=== PATIENT | male | born 1960 | race Hispanic/Latino ===

== ENCOUNTER 2021-05-30 11:39 | Emergency (ER) | payer OTHER, SELFPAY ==
[2021-05-30] VITALS (8 sets, daily range): BP systolic 138–152; BP diastolic 78–93; PULSE 114–127; RESP 20–26; TEMP 38.1; O2SAT 97–98
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
[2021-05-30 12:12] LABS: Basophils Percent Auto 0.2 % (0.2-1.2); Hematocrit 48.3 % (42.0-52.0); Hemoglobin 17.7 g/dL (14.0-18.0); Immature Granulocyte Absolute 0.01 K/mm3 (0.00-0.031); Immature Granulocyte Percent A 0.2 % (0-0.5); Lymphocytes Absolute Auto 0.93 K/mm3 (0.9-3.2); Lymphocytes Percent Auto 16.2 % (18.3-44.2); Mean Corpuscular HGB Conc 36.6 g/dl (32-36); Mean Corpuscular Hemoglobin 30.6 pg (26-34); Mean Corpuscular Volume 83.6 fl (80-100); Monocytes Absolute Auto 0.3 K/mm3 (0.1-0.6); Neutrophils Absolute Auto 4.5 K/mm3 (1.3-6.7); Neutrophils Percent Auto 78.4 % (45.5-73.1); Platelet Count Result 204 k/mm3 (150-375); Red Blood Count 5.78 M/mm3 (4.6-6.20); Red Cell Distribution Width 12.7 % (11.5-14.5); White Blood Count 5.8 K/mm3 (4.5-10.0)
[2021-05-30] MEDS: ONDANSETRON INJ 4 MG/2 ML VIAL IV PUSH (12:25)
[2021-05-30] MEDS: BELLADONNA ALK/PHENOB ELIX 10 ML, MAG HYDROX/ALUMINUM HYD/SIMETH 30 ML, LIDOCAINE HCL 2... PO (12:25)
[2021-05-30] MEDS: LACTATED RINGERS 1,000 ML 999 ML IV CONT ×2 (12:25→14:54)
[2021-05-30 12:32] LABS: Alanine Aminotransferase 25 U/L (4-50); Albumin Level 4.2 g/dL (3.5-5.1); Alkaline Phosphatase 95 U/L (38-126); Anion Gap 13 mmol/L (8-16); Aspartate Amino Transferase 53 U/L (17-59); Blood Urea Nitrogen 13 mg/dL (9-20); Calcium 8.5 mg/dL (8.4-10.2); Carbon Dioxide 24 mmol/L (22-30); Chloride 93 mmol/L (98-107); Estimated CRCL calculation 63 ml/min; Estimated Glomerular Filt Rate > 60; Glucose 238 mg/dL (65-110); Lipase 55 U/L (23-300); Potassium 3.9 mmol/L (3.4-5.0); Sodium 130 mmol/L (137-145)
[2021-05-30 12:56] LABS: Add Urine Microscopic? YES; Appearance Urine Clear (Clear); Bilirubin Urine Negative (Negative); Blood Urine 1+ (Negative); Color Urine Yellow (Yellow); Glucose Urine UA 3+ mg/dL (Negative); Ketones Urine 2+ mg/dL (Negative); Leukocyte Esterase Ur Negative LEU/UL (Negative); Mucus Urine Moderate /lpf; Nitrate Urine Negative (Negative); Protein Urine 2+ mg/dL (Negative); RBC Urine 0-2 /hpf (0-2); Specific Grav Ur 1.021 (1.001-1.035); Squamous Epithelial Cell Urine Rare /hpf (Few); WBC Urine 0-3 /hpf
--- NOTE | 2021-05-30 15:01 | ED.ABDPAIN ---
HPI - Abdominal Pain General Chief Complaint: Abdominal Pain Stated Complaint: abd pain Time Seen by Provider: 05/30/21 12:01 Source: patient Mode of arrival: ambulatory Limitations: no limitations History of Present Illness HPI narrative: 60-year-old male Patient states that he has been sick for about a week with subjective fever muscle aches nausea poor appetite diarrhea Not much of a cough or shortness of breath No Covid vaccine Got a Covid test this morning but the results are pending Related Data Allergies Allergy/AdvReac Type Severity Reaction Status Date / Time No Known Allergies Allergy Mild Verified 05/30/21 12:00 Review of Systems Review of Systems: All systems reviewed & are unremarkable except as noted in HPI and below Constitutional: Constitutional: Reports no additional constitutional complaints, Reports chills, Reports fatigue, Reports fever(s), Denies headache(s) and Reports weakness Eyes: Eyes: Reports no additional eye complaints and Denies change in vision ENT: Denies headache(s) and Denies sore throat Cardiovascular: Cardiovascular: Denies chest pain and Denies dyspnea Respiratory: Respiratory: Reports cough and Denies dyspnea Gastrointestinal: Gastrointestinal: Reports abdominal pain, Reports diarrhea, Reports nausea and Reports vomiting Genitourinary: Genitourinary: Denies dysuria and Denies urinary frequency Musculoskeletal: Musculoskeletal: Reports myalgias, Denies deformity, Denies arthralgias, Denies joint swelling and Denies numbness Integumentary/Breasts: Skin/Breast: Denies rash and Denies wounds Neurologic: Denies headache(s), Denies focal weakness and Denies numbness Psychiatric: Psychiatric: Reports no additional psychiatric complaints Endocrine: Endocrine: Reports no additional endocrine complaints Hematologic/Lymphatic: Hematologic/Lymphatic: Reports no additional hematologic/lymphatic complaints Allergic/Immunologic: Allergic/Immunologic: Reports no additional allergic/immunologic complaints Exam Const: General: cooperative and no acute distress Orientation/consciousness: patient oriented x3 (alert) HENMT: Head: normal to inspection, normocephalic and atraumatic Ears: external ears normal General nose exam: no epistaxis Eyes: Conjunctivae: conjunctivae normal EOM: EOMs intact bilaterally Neck: Neck: normal visual inspection, supple and no JVD Resp: Effort & Inspection: normal respiratory effort and not labored Auscultation: no rales, no rhonchi, no wheezes and other (BS =) Cardio: Rate: regular rate and tachycardic Rhythm: regular rhythm Heart sounds: no murmurs GI: GI Palp: Yes Soft to palpation, No Tenderness to palpation present (GI), No Guarding due to palpation present (GI) and No Rebound tenderness present Urinary Catheter: Urinary Catheter: urine clear Skin: General skin exam: normal color and no rashes or lesions noted Neuro: General: patient oriented x3 (alert) and moves all extremities Speech: normal speech Extrem: General: normal to inspection and no pedal edema Psych: Affect: normal affect Course Course Emergency Course: Discussed with patient it does not seem that he would be eligible for any Covid therapeutics he has been sick for more than 5 days and does not have any hypoxemia Vital Signs Vital signs: Vital Signs Temperature 38.1 C H 05/30/21 11:42 Pulse Rate 126 H 05/30/21 11:42 Respiratory Rate 20 05/30/21 11:42 Blood Pressure 138/89 05/30/21 11:42 Pulse Oximetry 98 05/30/21 11:42 Temperature 38.1 C H 05/30/21 11:42 Pulse Rate 115 H 05/30/21 13:16 Respiratory Rate 25 H 05/30/21 13:16 Blood Pressure 144/78 H 05/30/21 13:15 Pulse Oximetry 97 05/30/21 11:58 MDM - Abdominal Pain Medical Records Attestation: I reviewed the patient's medical records. Lab Data Attestation: I reviewed the patient's lab results. Result diagrams: 05/30/21 12:05 05/30/21 12:05 Labs: La
[2021-05-30 15:55] LABS: SARS-CoV-2 RNA PCR Positive
== END 2021-05-30 16:04 | disposition home or self-care (01) ==
PROVIDERS: Emergency Medicine; Emergency Provider Emergency Medicine
DX: R73.9 Hyperglycemia, unspecified (principal); K76.0 Fatty (change of) liver, not elsewhere classified
CPT/HCPCS: 36415; 74176; 80053; 81001; 83690; 85025; 87804; 96361; 96374; 99284; A9270; C9803; J2405; J7120; U0003; U0005

== ENCOUNTER 2021-06-05 10:13 | Outpatient (CLI) | payer OTHER, SELFPAY ==
--- NOTE | ~2021-06-05 | XR_ITS ---
XR chest 2V DATE: 06/05/2021 10:33 INDICATION: Shortness of breath, cough, fatigue. Covid infection. TECHNIQUE: PA and lateral views COMPARISON: None FINDINGS: There are patchy consolidating infiltrates scattered in both lungs, consistent with bilater al pneumonia, likely Covid. No pleural effusion or pulmonary vascular congestion or pneumothorax. Nor mal heart size. Mild aortic unfolding. Mild degenerative spurring of the thoracic spine. IMPRESSION: Bilateral pneumonia, likely Covid Reviewed, dictated and finalized at location B. ING SPECIALIST
== END 2021-06-05 10:14 | disposition home or self-care (01) ==
PROVIDERS: PCP Emergency Medicine; Visit Provider Emergency Medicine
DX: U07.1 COVID-19 (principal); J12.82 Pneumonia due to coronavirus disease 2019; R50.9 Fever, unspecified; R53.83 Other fatigue; M47.814 Spondylosis without myelopathy or radiculopathy, thoracic region
CPT/HCPCS: 71046

== ENCOUNTER 2021-06-05 10:57 | Observation (INO) | payer OTHER, SELFPAY ==
[2021-06-05] VITALS (8 sets, daily range): BP systolic 114–145; BP diastolic 61–86; PULSE 96–126; RESP 16–20; TEMP 36.8–38.2; O2SAT 91–98; BMI 27.0
--- NOTE | ~2021-06-05 | XR_ITS ---
EXAMINATION: XR chest 1V portable DATE: 06/07/2021 15:07 INDICATION: Pneumonia TECHNIQUE: frontal view of the chest was obtained. COMPARISON: Chest radiograph and CT dated 06/05/2021 FINDINGS: Similar pattern of diffuse patchy bilateral airspace opacities relatively sparing the left apex consi stent with COVID pneumonia. No pleural effusion or pneumothorax. The cardiomediastinal silhouette is normal. IMPRESSION: 1. No significant change in diffuse bilateral patchy lung disease consistent with COVID pneumonia. Reviewed, dictated and finalized at location A. RVISOR FORCE ADJUSTMENT IMPRESSION: 1. No significant change in diffuse bilateral patchy lung disease consistent wi th COVID pneumonia.
--- NOTE | ~2021-06-05 | CT_ITS ---
EXAMINATION: CTA chest PE protocol EXAM DATE: 06/05/2021 17:34 INDICATION: Shortness of breath. TECHNIQUE: Spiral CTA of the chest (pulmonary arteries) was performed with 100 cc Omnipaque 350 intr avenous contrast injection. Images were acquired during the pulmonary arterial phase. Coronal maxi mum intensity projection 3D-reconstructions were created by the technologist on dedicated workstation . Axial, coronal and sagittal reformatted images were reviewed. The dose-length product (DLP) for t his examination was 460.28 mGy-cm. The exposure was tailored according to patient size (auto mA exp osure control), and iterative reconstruction (ASIR) was used as additional dose reduction technique. There is no prior study for comparison. FINDINGS: There are no pulmonary emboli in the 1st through 3rd order (central and interlobar) pulmon [place]nn arteries. Some loss of attenuation in the basilar segmental pulmonary from respiratory motion, t hese regions not confidently evaluated. No Intraluminal filling defects identified. No thoracic aor tic dissection. Diffuse bilateral groundglass airspace disease consistent with COVID pneumonia given appearance and community prevalence. There are no pleural or pericardial effusions. Tracheobronch ial tree is patent. There is no mediastinal, hilar or axillary lymphadenopathy. There is no pneum othorax. There is mild cardiomegaly. There is mild coronary arterial calcification, arterial scler osis. Upper abdomen is unremarkable. There is mild thoracic spondylosis without osteoblastic or os teolytic lesions identified. IMPRESSION: 1. Limited segmental evaluation, but no pulmonary emboli are suspected. 2. Diffuse groundglass airspace disease, COVID pneumonia. 3. Mild cardiomegaly. Reviewed, dictated and finalized at location G. ST NURSERY WORKER
--- NOTE | 2021-06-05 11:47 | ECG_ITS ---
Measurements Intervals [place] Rate: 122 P: 23 AK: 124 QRS: 11 QRSD: 88 T: 15 QT: 324 QTc: 463 Interpretive Statements SINUS TACHYCARDIA CONSIDER INFERIOR INFARCT, AGE INDETERMINATE BASELINE ARTIFACT- I, II, III, AVR, AVL, AVF ABNORMAL ECG Electronically Signed On 06-05-2021 13:01:40 ACCOUNTS PAYABLE TECHNICIAN by Anjel Cross D.O.
--- NOTE | 2021-06-05 12:07 | ED.GENADULT ---
HPI - General Adult General Chief complaint: Shortness of Breath/Dyspnea Stated complaint: sob Time Seen by Provider: 06/05/21 11:58 Source: patient and RN notes reviewed History of Present Illness HPI narrative: Patient is a 60 y/o male complaining moderate SOB for 1 week. He states that walking makes his SOB worse. He also has fever, cough, vomiting and diarrhea. He states that he tested positive for COVID last Friday. Related Data Home Medications Medication Instructions Recorded Confirmed albuterol sulfate 4 puff INHALATION QID 06/05/21 06/05/21 Allergies Allergy/AdvReac Type Severity Reaction Status Date / Time No Known Allergies Allergy Mild Verified 06/05/21 16:03 Review of Systems Constitutional: Constitutional: Denies chills, Reports fever(s), Denies headache(s) and Reports weakness Eyes: Eyes: Denies blurry vision ENT: Denies headache(s) and Denies neck pain Cardiovascular: Cardiovascular: Reports chest pain and Reports dyspnea Respiratory: Respiratory: Reports cough and Reports dyspnea Gastrointestinal: Gastrointestinal: Denies abdominal pain, Reports diarrhea, Reports nausea and Reports vomiting Genitourinary: Genitourinary: Denies hematuria and Denies dysuria Musculoskeletal: Musculoskeletal: Denies back pain and Denies neck pain Neurologic: Denies headache(s) and Reports weakness PMFSH Surgical History Surgical History (Updated 06/05/21 @ 20:33 by Corrina Blake NP) No pertinent past surgical history Family History Family History (Updated 06/05/21 @ 20:34 by Corrina Blake NP) Unknown Unknown family medical history Social History Social History (Updated 06/05/21 @ 20:34 by Corrina Blake NP) Social History: 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 He lives with his who is the durable power criminal defense attorney for healthcare. He has 2 children. Lifelong nonsmoker. Does not use any alcohol marijuana or illicit drugs. Code status full code Smoking status: Never smoker Alcohol intake: former Substance use: former Last use: 50 years ago Spiritual care concerns: Yes Exam Const: General: no acute distress and well developed Orientation/consciousness: oriented to person, oriented to place, oriented to time and patient oriented x3 HENMT: Head: normocephalic Ears: external ears normal General nose exam: Normal external nose present Eyes: General: appearance normal, both eyes and all related structures Conjunctivae: conjunctivae normal Neck: Neck: normal visual inspection and full ROM Chest: Chest palpation & inspection: normal inspection of the chest and no tenderness Resp: Effort & Inspection: normal respiratory effort Auscultation: clear to auscultation bilaterally Cardio: Rate: tachycardic Rhythm: regular rhythm GI: GI Palp: No abdominal tenderness and Yes Soft to palpation Skin: General skin exam: normal color and turgor normal Neuro: General: oriented to person, oriented to place, oriented to time and patient oriented x3 Cognition (Neuro): normal cognition Extrem: General: normal to inspection, full ROM and no pedal edema Psych: Appearance: grossly normal Mental Status: mental status grossly normal Affect: normal affect Course Consultations Consultation #1: Discussed with CROW Houser, who agrees to admit. Date: 06/05/21 Time: 13:44 Vital Signs Vital signs: Vital Signs Temperature 38.2 C H 06/05/21 11:32 Pulse Rate 126 H 06/05/21 11:32 Respiratory Rate 20 06/05/21 11:32 Blood Pressure 139/86 06/05/21 11:32 Pulse Oximetry 94 06/05/21 11:32 Temperature 37.3 C 06/06/21 04:00 Pulse Rate 100 06/06/21 04:00 Respiratory Rate 18 06/06/21 04:00 Blood Pressure 110/61 06/06/21 04:00 Pulse Oximetry 91 06/06/21 04:00 Medical Decision Making Vital Signs Vital Signs: Vital Signs Temperature 38.2 C H 06/05/21 11:32 Pulse Rate 126 H 06/05/21 11:32 Respiratory Rate 20 06/05/21 11:32 Blood Pressure
[2021-06-05] MEDS: ACETAMINOPHEN 325 MG TABLET 650 MG PO (12:12)
[2021-06-05 12:29] LABS: Basophils Percent Auto 0.3 % (0.2-1.2); Eosinophils Percent Auto 0.1 % (0-4.4); Hematocrit 45.6 % (42.0-52.0); Hemoglobin 17.1 g/dL (14.0-18.0); Immature Granulocyte Absolute 0.03 K/mm3 (0.00-0.031); Immature Granulocyte Percent A 0.4 % (0-0.5); Lymphocytes Absolute Auto 1.43 K/mm3 (0.9-3.2); Lymphocytes Percent Auto 20.7 % (18.3-44.2); Mean Corpuscular HGB Conc 37.5 g/dl (32-36); Mean Corpuscular Hemoglobin 30.5 pg (26-34); Mean Corpuscular Volume 81.3 fl (80-100); Mean Platelet Volume 10.1 fl (7.4-10.4); Monocytes Absolute Auto 0.5 K/mm3 (0.1-0.6); Monocytes Percent Auto 7.2 % (2.6-8.5); Neutrophils Absolute Auto 4.9 K/mm3 (1.3-6.7); Neutrophils Percent Auto 71.3 % (45.5-73.1); Platelet Count Result 364 k/mm3 (150-375); Red Blood Count 5.61 M/mm3 (4.6-6.20); Red Cell Distribution Width 12.7 % (11.5-14.5); White Blood Count 6.9 K/mm3 (4.5-10.0)
[2021-06-05 12:36] LABS: Alanine Aminotransferase 20 U/L (4-50); Alkaline Phosphatase 79 U/L (38-126); Anion Gap 9 mmol/L (8-16); Aspartate Amino Transferase 54 U/L (17-59); Blood Urea Nitrogen 13 mg/dL (9-20); Calcium 8.3 mg/dL (8.4-10.2); Carbon Dioxide 25 mmol/L (22-30); Chloride 93 mmol/L (98-107); Estimated CRCL calculation 71 ml/min; Estimated Glomerular Filt Rate > 60; Glucose 232 mg/dL (65-110); Potassium 3.9 mmol/L (3.4-5.0); Sodium 127 mmol/L (137-145)
[2021-06-05 13:04] LABS: Atypical Lymphocytes Present; Platelet Estimate Adequate (Adequate)
[2021-06-05 13:22] LABS: Troponin I < 0.012 ng/mL (0.000-0.034)
[2021-06-05] MEDS: guaiFENesin/DEXTROMETHORPHAN 10 ML UDC PO (13:22)
[2021-06-05] MEDS: SODIUM CHLORIDE 0.9% IV 1,000 ML 999 ML IV CONT (13:22)
[2021-06-05] MEDS: ONDANSETRON INJ 4 MG/2 ML VIAL IV PUSH (13:22)
[2021-06-05 13:51] LABS: D Dimer 0.73 ug/mL (<0.48)
[2021-06-05 19:36] LABS: Troponin I < 0.012 ng/mL (0.000-0.034)
--- NOTE | 2021-06-05 20:28 | PM.IMHP ---
H&P: HPI History of Present Illness Date/Time: 06/05/21 20:28 this is a 60-year-old male patient who tested positive for COVID-19 on 05/30/2021 and stated that he has taken home test since then and has tested negative. The patient is currently on room air but complaints of feeling short of breath at times. He stated that he had fever and chills cough nausea vomiting and diarrhea. The patient has been more short of breath over the last week. His D-dimer sound to be 0.73. Sodium was 127 and 5 days ago was 130. His blood sugars 232. Troponin negative x2. Chest x-ray was read as bilateral pneumonia likely COVID. Chest CTA was read as. Limited segmental evaluation, but no pulmonary emboli are suspected. 2. Diffuse groundglass airspace disease, COVID pneumonia. 3. Mild cardiomegaly. The patient was given Tylenol, a L of IV fluids, Zofran and Robitussin. The patient is being admitted to observation status on the date of service of 06/05/2021. Chief Complaint: Shortness of breath Review of Systems Review of Systems: All systems reviewed & are unremarkable except as noted in HPI and below Constitutional: Constitutional: Reports as per HPI and Reports no additional constitutional complaints Eyes: Eyes: Reports as per HPI and Reports no additional eye complaints ENT: Reports system reviewed and no additional complaints, except as documented and Reports Normal hearing present Cardiovascular: Cardiovascular: Reports no additional cardiovascular complaints Respiratory: Respiratory: Reports no additional respiratory complaints and Reports no additional respiratory complaints Gastrointestinal: Gastrointestinal: Reports as per HPI and Reports no additional gastrointestinal complaints Musculoskeletal: Musculoskeletal: Reports no additional musculoskeletal complaints Integumentary/Breasts: Skin/Breast: Reports system reviewed and no additional complaints, except as docu and Reports as per HPI Neurologic: Reports system reviewed and no additional complaints, except as documented, Reports as per HPI and Reports Normal hearing present Psychiatric: Psychiatric: Reports no additional psychiatric complaints and Reports as per HPI Endocrine: Endocrine: Reports no additional endocrine complaints Hematologic/Lymphatic: Hematologic/Lymphatic: Reports no additional hematologic/lymphatic complaints Allergic/Immunologic: Allergic/Immunologic: Reports no additional allergic/immunologic complaints [facility] Surgical History Surgical History (Updated 06/05/21 @ 20:33 by Corrina Blake NP) No pertinent past surgical history Family History Family History (Updated 06/05/21 @ 20:34 by Corrina Blake NP) Unknown Unknown family medical history Social History Social History (Updated 06/05/21 @ 20:34 by Corrina Blake NP) Social History: 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 He has 2 children. Lifelong nonsmoker. Does not use any alcohol marijuana or illicit drugs. Code status full code Smoking status: Never smoker Alcohol intake: former Substance use: former Last use: 50 years ago Spiritual care concerns: Yes Meds Home Medications and Allergies Home Medications Medication Instructions Recorded Confirmed Type ondansetron 4 mg PO Q6H PRN #20 tablet 05/30/21 06/05/21 Rx albuterol sulfate 4 puff INHALATION QID 06/05/21 06/05/21 History Allergies Allergy/AdvReac Type Severity Reaction Status Date / Time No Known Allergies Allergy Mild Verified 06/05/21 16:03 Vital Signs Vital Signs - 24 hr 06/05/21 11:32 06/05/21 11:42 06/05/21 13:00 Temperature 38.2 C H 37.3 C Pulse Rate 126 H 118 H Respiratory Rate 20 18 18 Blood Pressure 139/86 Pulse Oximetry 94 98 06/05/21 13:03 06/05/21 15:07 06/05/21 15:45 Temperature 37.2 C 36.8 C Pulse Rate 102 H 98 Respiratory Rate 18 20 Blood Pressure 127/86 145/78 H 124/79 Pulse Oxi
[2021-06-05] MEDS: ENOXAPARIN 40 MG/0.4 ML SYRINGE SUB-Q (22:01)
[2021-06-05 22:06] LABS: Glucose Point of Care 223 mg/dl (65-105)
[2021-06-06] VITALS (9 sets, daily range): BP systolic 108–126; BP diastolic 60–93; PULSE 98–108; RESP 17–20; TEMP 36.6–37.3; O2SAT 90–93
--- NOTE | 2021-06-06 | ECHO_ITS ---
Patient Info Name: Reggie Gonzales Age: 60 years : 1960 Gender: Male Ht: 64 in Wt: 157 lbs BSA: 1.81 m2 HR: 100 bpm BP: 110 / 61 mmHg Heart Rhythm: Sinus Rhythm Technical Quality: Fair Exam Date: 06/06/2021 1:07 PM Exam Location: [facility] Patient Status: Outpatient Admit Date: 06/05/2021 Staff Ordering Physician: Corrina Blake NP [employer]house Supervisor: Shante Livingston RDCS Attending Provider: Andry Martinez MD Referring Physician: Hayden QUINTERO; Exam Type: CA echo dop color flow w con Study Info Indications - cardiomegaly Complete two-dimensional, color flow and Doppler transthoracic echocardiogram is performed. Summary 1. Complete two-dimensional, color flow and Doppler transthoracic echocardiogram is performed. 2. Left ventricular chamber dimension is normal. 3. Definity contrast administered improved wall motion interpretation. 4. Left ventricular systolic function is normal, estimated at 65-70%. 5. The left ventricular diastolic function is grade I diastolic dysfunction. 6. E/e' 9 is minimally elevated. 7. Right ventricular systolic function is mildly reduced based on abnormal TAPSE 1.5 cm. 8. There is mild aortic valve sclerosis. 9. There is mild aortic valve regurgitation. 10. There is mild tricuspid valve regurgitation. 11. No pulmonary hypertension, estimated pulmonary arterial systolic pressure is 28 mmHg. Left Ventricle E/e' 9 is minimally elevated. Definity contrast administered improved wall motion interpretation. Left ventricular chamber dimension is normal. Left ventricular systolic function is normal, estimated at 65-70%. The left ventricular diastolic function is grade I diastolic dysfunction. Right Ventricle Right ventricular systolic function is mildly reduced based on abnormal TAPSE 1.5 cm. Right ventricular chamber dimension is not well visualized. Left Atria Left atrial chamber dimension is normal. Right Atria Right atrial chamber dimension is normal. Aortic Valve The aortic valve is trileaflet. There is mild aortic valve sclerosis. There is no aortic valve stenosis. There is mild aortic valve regurgitation. Pulmonic Valve There is no pulmonic regurgitation. Mitral Valve There is no mitral valve stenosis. There is no mitral valve regurgitation. Tricuspid Valve There is mild tricuspid valve regurgitation. No pulmonary hypertension, estimated pulmonary arterial systolic pressure is 28 mmHg. Pericardium/Pleural There is no pericardial effusion. Inferior Vena Cava Normal inferior vena cava with >50% collapse upon inspiration consistent with normal right atrial pressure, 5 mmHg. Aorta The aortic root size at the sinus of Valsalva is normal. Left Ventricular Outflow Tract Name Value Normal LVOT 2D LVOT Diameter 2.04 cm LVOT Doppler LVOT Peak Gradient 5 mmHg LVOT Mean Gradient 2 mmHg LVOT VTI 15.52 cm LVOT VTI/AV VTI Ratio 0.89 LVOT Stroke Volume 50.56 ml LVOT CO
[2021-06-06 06:53] LABS: Sodium Urine Random 26 meq/L
[2021-06-06 07:06] LABS: Basophils Percent Auto 0.2 % (0.2-1.2); Eosinophils Percent Auto 0.5 % (0-4.4); Hematocrit 42.1 % (42.0-52.0); Immature Granulocyte Absolute 0.03 K/mm3 (0.00-0.031); Immature Granulocyte Percent A 0.5 % (0-0.5); Lymphocytes Absolute Auto 1.52 K/mm3 (0.9-3.2); Lymphocytes Percent Auto 23.5 % (18.3-44.2); Mean Corpuscular HGB Conc 35.6 g/dl (32-36); Mean Corpuscular Hemoglobin 30.2 pg (26-34); Mean Corpuscular Volume 84.7 fl (80-100); Mean Platelet Volume 9.8 fl (7.4-10.4); Monocytes Absolute Auto 0.5 K/mm3 (0.1-0.6); Monocytes Percent Auto 7.9 % (2.6-8.5); Neutrophils Absolute Auto 4.4 K/mm3 (1.3-6.7); Neutrophils Percent Auto 67.4 % (45.5-73.1); Platelet Count Result 336 k/mm3 (150-375); Red Blood Count 4.97 M/mm3 (4.6-6.20); Red Cell Distribution Width 12.8 % (11.5-14.5); White Blood Count 6.5 K/mm3 (4.5-10.0)
[2021-06-06 07:26] LABS: Alanine Aminotransferase 15 U/L (4-50); Albumin Level 3.3 g/dL (3.5-5.1); Alkaline Phosphatase 70 U/L (38-126); Anion Gap 1 mmol/L (8-16); Aspartate Amino Transferase 37 U/L (17-59); Bilirubin,Total 0.8 mg/dL (0.2-1.3); Blood Urea Nitrogen 10 mg/dL (9-20); Calcium 7.9 mg/dL (8.4-10.2); Carbon Dioxide 30 mmol/L (22-30); Chloride 99 mmol/L (98-107); Estimated CRCL calculation 80 ml/min; Estimated Glomerular Filt Rate > 60; Glucose 168 mg/dL (65-110); Lactate Dehydrogenase 1043 U/L (313-618); Lipase 45 U/L (23-300); Magnesium 2.4 mg/dL (1.6-2.3); Potassium 3.5 mmol/L (3.4-5.0); Sodium 130 mmol/L (137-145)
[2021-06-06 08:08] LABS: Glucose Point of Care 165 mg/dl (65-105)
[2021-06-06 08:12] LABS: Hemoglobin A1C 9.6 % (<5.7)
[2021-06-06] MEDS: ALBUTEROL SULFATE (*SP) INHALER 4 PUFF INHALATION ×4 (08:46→20:23)
[2021-06-06 10:03] LABS: Free T4 Free Thyroxine Reflex 0.77 ng/dL (0.78-2.19)
[2021-06-06] MEDS: guaiFENesin/DEXTROMETHORPHAN 10 ML UDC PO ×3 (11:16→21:23)
[2021-06-06 11:29] LABS: Glucose Point of Care 261 mg/dl (65-105)
--- NOTE | 2021-06-06 13:18 | PCDIET ---
Pt screened in for MST 3. Unable to visit with pt due to following covid precautions. Attempted to call pt x2 but no answer. Per EMR, pt has had unintentional wt loss of 14-23lbs and a decreased appetite. No past weight reported in EMR. Current nutrition is a heart healthy diet and dietary supplement of Ensure Compact BID providing an additional 220kcal and 9g of protein to increase caloric intake. Reported intake is 95%. No nutritional needs at this time. Agree with diet order at this time. Will follow up in 7 days.
[2021-06-06] MEDS: PERFLUTREN LIPID MICROSPHERES 1.5 ML VIAL DILUTED TO 10 ML TOTAL VOLUME IV PUSH (13:46)
--- NOTE | 2021-06-06 13:46 | IVDEFINITY ---
Prior to administration of IV Definity the patient was educated on the risks and benefits of the imaging enhancing agent including potential adverse side effects. The patient verbalized understanding. Allergies were verified. No exclusion criteria were identified and at least one of the following inclusion criteria were met: 1) physician request, 2) patient technically difficult to image (per the [place] [employer] guidelines of two or more segments not discernable within the apical view), or 3) questionable left ventricular function. ?
[2021-06-06 16:41] LABS: Glucose Point of Care 208 mg/dl (65-105)
[2021-06-06] MEDS: guaiFENesin 600 MG/DEXTROMETHORPHAN 30 MG SR TAB 12 HR 1 TAB PO ×2 (16:59→21:23)
[2021-06-06] MEDS: INSULIN ASPART (*BKC) 100 UNITS/ML SUB-Q (17:03)
--- NOTE | 2021-06-06 17:19 | PM.IMPN ---
Progress Note: A&P Assessment and Plan (1) COVID-19: Code(s): U07.1 - COVID-19 Status: Acute Assessment and Plan: Patient is currently on room air so I did not start him on any REM does severe or Decadron at this time. Continue with albuterol inhaler and Robitussin. The patient is on contact and droplet isolation. Patient is 98% on room air. Home O2 evaluation in a.m.. Discharge to [facility]. (2) Elevated blood sugar: Code(s): R73.9 - Hyperglycemia, unspecified Status: Acute Assessment and Plan: Accu-Chek in the 165-261 range. Continue Accu-Chek monitoring and sliding scale coverage. HGB A1c 9.6. Patient will be started on oral anti diabetic upon discharge. (3) Hyponatremia: Code(s): E87.1 - Hypo-osmolality and hyponatremia Status: Acute Assessment and Plan: This appears to be his baseline between 127 and 130. He was only given 1 L of fluid since he has COVID. Check urine sodium and osmolality Subjective Date/time seen: 06/06/21 17:19 Narrative: this is a 60-year-old male patient who tested positive for COVID-19 on 05/30/2021 and stated that he has taken home test since then and has tested negative. The patient is currently on room air but complaints of feeling short of breath at times. He stated that he had fever and chills cough nausea vomiting and diarrhea. The patient has been more short of breath over the last week.The patient was given Tylenol, a L of IV fluids, Zofran and Robitussin. The patient is being admitted to observation status on the date of service of 06/05/2021. Chief Complaint: Shortness of breath S: Patient was seen and examined at the bedside. He denies any complaints. His breathing comfortably on room air. Review of Systems Review of Systems: All systems reviewed & are unremarkable except as noted in HPI and below Constitutional: Constitutional: Reports as per HPI and Reports no additional constitutional complaints Eyes: Eyes: Reports as per HPI and Reports no additional eye complaints ENT: Reports system reviewed and no additional complaints, except as documented and Reports Normal hearing present Cardiovascular: Cardiovascular: Reports no additional cardiovascular complaints Respiratory: Respiratory: Reports no additional respiratory complaints and Reports no additional respiratory complaints Gastrointestinal: Gastrointestinal: Reports as per HPI and Reports no additional gastrointestinal complaints Musculoskeletal: Musculoskeletal: Reports no additional musculoskeletal complaints Integumentary/Breasts: Skin/Breast: Reports system reviewed and no additional complaints, except as docu and Reports as per HPI Neurologic: Reports system reviewed and no additional complaints, except as documented, Reports as per HPI and Reports Normal hearing present Psychiatric: Psychiatric: Reports no additional psychiatric complaints and Reports as per HPI Endocrine: Endocrine: Reports no additional endocrine complaints Hematologic/Lymphatic: Hematologic/Lymphatic: Reports no additional hematologic/lymphatic complaints Allergic/Immunologic: Allergic/Immunologic: Reports no additional allergic/immunologic complaints Exam Const: General: cooperative, healthy appearing, comfortable, no acute distress, well developed, alert, awake and Physically active Nutritional Appearance: average body habitus and well nourished Orientation/consciousness: oriented to person, oriented to place, oriented to time and patient oriented x3 Limitations: no limitations HENMT: Head: normal to inspection, No palpable skull fracture present, normocephalic and atraumatic Ears: hearing grossly normal bilaterally General nose exam: Normal external nose present Eyes: General: appearance normal, both eyes and all related structures EOM: EOMs intact bilaterally Neck: Neck: normal visual inspection Chest: Chest palpation & inspection: normal inspection of the chest Resp: Effort & I
[2021-06-06 17:57] LABS: SARS-CoV-2 RNA PCR Positive
[2021-06-06] MEDS: ENOXAPARIN 40 MG/0.4 ML SYRINGE SUB-Q (21:23)
[2021-06-07] VITALS (11 sets, daily range): BP systolic 100–138; BP diastolic 59–84; PULSE 96–104; RESP 16–18; TEMP 36.4–37.8; O2SAT 90–99
[2021-06-07 02:26] LABS: Glucose Point of Care 188 mg/dl (65-105)
[2021-06-07 08:11] LABS: Glucose Point of Care 255 mg/dl (65-105)
[2021-06-07] MEDS: ALBUTEROL SULFATE (*SP) INHALER 4 PUFF INHALATION ×3 (08:19→21:21)
[2021-06-07] MEDS: INSULIN ASPART (*BKC) 100 UNITS/ML SUB-Q ×2 (08:28→18:06)
[2021-06-07] MEDS: guaiFENesin 600 MG/DEXTROMETHORPHAN 30 MG SR TAB 12 HR 1 TAB PO ×2 (08:28→21:58)
--- NOTE | 2021-06-07 12:00 | PM.IMPN ---
Progress Note: A&P Assessment and Plan (1) COVID-19: Code(s): U07.1 - COVID-19 Status: Acute Assessment and Plan: Acute COVID-19 infection. Patient did not require any supplemental oxygen and did a qualify for remdesivir or Decadron at this time. Continue with albuterol inhaler and Robitussin. The patient is on contact and droplet isolation. Patient is 98% on room air. Home O2 evaluation in a.m.. Plan for discharge today delayed due to recurrent episode of fever. Will monitor the patient overnight. If stable at discharge tomorrow.. (2) Elevated blood sugar: Code(s): R73.9 - Hyperglycemia, unspecified Status: Acute Assessment and Plan: Accu-Chek in the 188-255 range. Continue Accu-Chek monitoring and sliding scale coverage. HGB A1c 9.6. Patient will be started on metformin upon discharge. (3) Hyponatremia: Code(s): E87.1 - Hypo-osmolality and hyponatremia Status: Acute Assessment and Plan: This appears to be his baseline between 127 and 130. He was only given 1 L of fluid since he has COVID. Check urine sodium and osmolality. Repeat serum sodium in a.m.. Subjective Date/time seen: 06/07/21 11:20 S: Patient seen at the bedside. He is feeling weak. He had a mild fever earlier today. He reports, improved with antitussives medications. Review of Systems Review of Systems: All systems reviewed & are unremarkable except as noted in HPI and below Constitutional: Constitutional: Reports as per HPI and Reports no additional constitutional complaints Eyes: Eyes: Reports as per HPI and Reports no additional eye complaints ENT: Reports system reviewed and no additional complaints, except as documented and Reports Normal hearing present Cardiovascular: Cardiovascular: Reports no additional cardiovascular complaints Respiratory: Respiratory: Reports no additional respiratory complaints and Reports no additional respiratory complaints Gastrointestinal: Gastrointestinal: Reports as per HPI and Reports no additional gastrointestinal complaints Musculoskeletal: Musculoskeletal: Reports no additional musculoskeletal complaints Integumentary/Breasts: Skin/Breast: Reports system reviewed and no additional complaints, except as docu and Reports as per HPI Neurologic: Reports system reviewed and no additional complaints, except as documented, Reports as per HPI and Reports Normal hearing present Psychiatric: Psychiatric: Reports no additional psychiatric complaints and Reports as per HPI Endocrine: Endocrine: Reports no additional endocrine complaints Hematologic/Lymphatic: Hematologic/Lymphatic: Reports no additional hematologic/lymphatic complaints Allergic/Immunologic: Allergic/Immunologic: Reports no additional allergic/immunologic complaints Exam Const: General: cooperative, healthy appearing, comfortable, no acute distress, well developed, alert, awake and Physically active Nutritional Appearance: average body habitus and well nourished Orientation/consciousness: oriented to person, oriented to place, oriented to time and patient oriented x3 Limitations: no limitations HENMT: Head: normal to inspection, No palpable skull fracture present, normocephalic and atraumatic Ears: hearing grossly normal bilaterally General nose exam: Normal external nose present Eyes: General: appearance normal, both eyes and all related structures EOM: EOMs intact bilaterally Neck: Neck: normal visual inspection Chest: Chest palpation & inspection: normal inspection of the chest Resp: Effort & Inspection: normal respiratory effort Auscultation: clear to auscultation bilaterally Percussion: percussion normal Cardio: Palpation: normal PMI Rate: regular rate Rhythm: regular rhythm Heart sounds: S1 normal heart sound present and S2 normal heart sound present Peripheral pulses: Peripheral pulses 2+ throughout GI: Inspection: normal to inspection Auscultation: normal bowel sounds R
[2021-06-07 12:11] LABS: Glucose Point of Care 226 mg/dl (65-105)
--- NOTE | 2021-06-07 14:19 | PCRCNOTE ---
Window of time for administration has passed. See next scheduled administration.
--- NOTE | 2021-06-07 14:43 | PM.DS ---
DS: Admitting Diagnosis Discharge Date 06/08/2021 Admitting Diagnosis 1) COVID-19: Code(s): U07.1 - COVID-19 Status: Acute Assessment and Plan: Patient remained on room air so did not meet criteria for remdesivir or Decadron at this time. Continue with albuterol inhaler and Robitussin. The patient is on contact and droplet isolation. Patient is 98% on room air. (2) Elevated blood sugar: Code(s): R73.9 - Hyperglycemia, unspecified Status: Acute Assessment and Plan: Patient was diagnosed with diabetes based on HbA1c of 9.6. His accu-checks were monitored and he was managed with insulin sliding scale coverage. He was discharged on metformin. (3) Hyponatremia: Code(s): E87.1 - Hypo-osmolality and hyponatremia Status: Acute Assessment and Plan: This appears to be his baseline between 127 and 130. He was only given 1 L of fluid since he has COVID. Check urine sodium and osmolality Quality VTE Prophylaxis VTE prophylaxis: pharmacologic ordered DS: Discharge Diagnosis Discharge Diagnosis (1) COVID-19: Code(s): U07.1 - COVID-19 Status: Acute Assessment and Plan: Patient is currently on room air so I did not start him on any REM does severe or Decadron at this time. Continue with albuterol inhaler and Robitussin. The patient is on contact and droplet isolation. Patient is 98% on room air. Home O2 evaluation in a.m.. Discharge to [facility]. (2) Elevated blood sugar: Code(s): R73.9 - Hyperglycemia, unspecified Status: Acute Assessment and Plan: Accu-Chek in the 165-261 range. Continue Accu-Chek monitoring and sliding scale coverage. HGB A1c 9.6. Patient will be started on oral anti diabetic upon discharge. (3) Hyponatremia: Code(s): E87.1 - Hypo-osmolality and hyponatremia Status: Acute Assessment and Plan: This appears to be his baseline between 127 and 130. He was only given 1 L of fluid since he has COVID. Check urine sodium and osmolality DS: Summary Hospital Course Reason for hospitalization: Shortness of breath. Hospital Course: Please refer to admission H& P. Briefly, this is a 60-year-old male patient who tested positive for COVID-19 on 05/30/2021 and stated that he has taken home test since then and has tested negative. The patient is currently on room air but complaints of feeling short of breath at times. He stated that he had fever and chills cough nausea vomiting and diarrhea. The patient has been more short of breath over the last week. His D-dimer sound to be 0.73. Sodium was 127 and 5 days ago was 130. His blood sugars 232. Troponin negative x2. Chest x-ray was read as bilateral pneumonia likely COVID. Chest CTA was read as. Limited segmental evaluation, but no pulmonary emboli are suspected. 2. Diffuse groundglass airspace disease, COVID pneumonia. 3. Mild cardiomegaly. The patient was given Tylenol, a L of IV fluids, Zofran and Robitussin. The patient is being admitted to observation status on the date of service of 06/05/2021. Patient never had supplemental oxygen requirement.Accu-Chek in the 165-261 range. Continue Accu-Chek monitoring and sliding scale coverage. HGB A1c 9.6. Patient will be started on oral anti diabetic upon discharge. He was discharged on a 5 day course of p.o. azithromycin. He will monitor his pulse oximetry at home. He was instructed to return to the hospital with pulse ox 90 or less. Status at Discharge Functional status at discharge: independent ambulation Overall status at discharge: patient is back to baseline Time Spent with Patient Time attestation: Total time spent providing and/or coordinating discharge services:35 min Time spent: Greater than 30 minutes Exam Const: General: cooperative, healthy appearing, comfortable, no acute distress, well developed, alert, awake and Physically active Nutritional Appearance: average body habitus and well nourished Orientation/con
--- NOTE | 2021-06-07 15:36 | HOMEO2EVAL ---
Evaluation was performed at [facility] Home Oxygen Evaluation RC: Home Oxygen (O2) Evaluation Start: 06/07/21 14:48 Freq: ONCE Status: Active Protocol: RPE Activity Type Activity Date Activity User E-Sign Co-Sign Detail Recorded Client Recorded Date Recorded By Document 06/07/21 15:00 JOHN [email or web address] 06/07/21 15:36 JOHN Document 06/07/21 15:05 JOHN [email or web address] 06/07/21 15:36 JOHN Document 06/07/21 15:10 JOHN [email or web address] 06/07/21 15:36 JOHN 06/07/21 06/07/21 06/07/21 15:00 15:05 15:10 Home O2 Evaluation Test Phase Resting Exercise Resting Oxygen Delivery Room Air Room Air Room Air Pulse Oximetry (90-100 %) 99 91 96 Ambulation Distance (feet) 200 Ambulation Distance (meters) 60.95 Home Oxygen Evaluation Comments no home o2 needed Treatment Charges O2 Evaluation - Inpatient
--- NOTE | 2021-06-07 15:36 | PCRCNOTE ---
Home O2 eval done, No home O2 needed at this time.
--- NOTE | 2021-06-07 16:17 | PCCDE ---
Consult received 2/3 for new onset DM. Pt admitted 2 with hyponatremia, covid pna. Has hx of pre-diabetes and found to have A1c of 9.6%. Called pt's room due to COVID precautions. Attempted at 1530 and 1600 without answer. Called and spoke to RN and she will let him know I am trying to reach him. Requested RN to give BG meter. He already has Diabetes Management book. Attempted again at 1615-no answer. Will try again tomorrow.
[2021-06-07] MEDS: metFORMIN HCL 500 MG TABLET PO (16:24)
[2021-06-07 16:54] LABS: Glucose Point of Care 209 mg/dl (65-105)
[2021-06-07] MEDS: ENOXAPARIN 40 MG/0.4 ML SYRINGE SUB-Q (21:58)
[2021-06-08] VITALS: BP 124/77; PULSE 99; RESP 16; TEMP 37.3; O2SAT 91
[2021-06-08 00:12] LABS: Glucose Point of Care 195 mg/dl (65-105)
[2021-06-08 04:00] VITALS: BP 132/75; PULSE 102; RESP 16; TEMP 37; O2SAT 92
[2021-06-08 07:32] LABS: Basophils Percent Auto 0.1 % (0.2-1.2); Eosinophils Absolute Auto 0.1 K/mm3 (0-0.3); Eosinophils Percent Auto 1.3 % (0-4.4); Hemoglobin 15.4 g/dL (14.0-18.0); Immature Granulocyte Absolute 0.05 K/mm3 (0.00-0.031); Immature Granulocyte Percent A 0.6 % (0-0.5); Lymphocytes Absolute Auto 1.47 K/mm3 (0.9-3.2); Lymphocytes Percent Auto 18.9 % (18.3-44.2); Mean Corpuscular Hemoglobin 30.1 pg (26-34); Mean Corpuscular Volume 86.1 fl (80-100); Mean Platelet Volume 9.5 fl (7.4-10.4); Monocytes Absolute Auto 0.6 K/mm3 (0.1-0.6); Neutrophils Absolute Auto 5.5 K/mm3 (1.3-6.7); Neutrophils Percent Auto 71.1 % (45.5-73.1); Platelet Count Result 478 k/mm3 (150-375); Red Blood Count 5.11 M/mm3 (4.6-6.20); Red Cell Distribution Width 12.7 % (11.5-14.5); White Blood Count 7.8 K/mm3 (4.5-10.0)
[2021-06-08 07:35] LABS: Anion Gap 5 mmol/L (8-16); Blood Urea Nitrogen 10 mg/dL (9-20); Carbon Dioxide 28 mmol/L (22-30); Chloride 98 mmol/L (98-107); Estimated CRCL calculation 92 ml/min; Estimated Glomerular Filt Rate > 60; Glucose 170 mg/dL (65-110); Sodium 131 mmol/L (137-145)
[2021-06-08 08:00] VITALS: BP 117/80; PULSE 122; RESP 14; TEMP 36.6; O2SAT 95
[2021-06-08 08:53] LABS: Glucose Point of Care 220 mg/dl (65-105)
[2021-06-08] MEDS: INSULIN ASPART (*BKC) 100 UNITS/ML SUB-Q (09:45)
[2021-06-08] MEDS: guaiFENesin 600 MG/DEXTROMETHORPHAN 30 MG SR TAB 12 HR 1 TAB PO (09:46)
[2021-06-08] MEDS: metFORMIN HCL 500 MG TABLET PO (09:46)
[2021-06-08 10:33] LABS: Atypical Lymphocytes Present; Platelet Estimate Increased (Adequate)
[2021-06-08] MEDS: ALBUTEROL SULFATE (*SP) INHALER 4 PUFF INHALATION (10:35)
--- NOTE | 2021-06-08 10:41 | PM.IMPN ---
Progress Note: A&P Assessment and Plan (1) COVID-19: Code(s): U07.1 - COVID-19 Status: Acute Assessment and Plan: Acute COVID-19 infection pre crackles on physical exam, bilateral diffuse pneumonia on chest x-ray. Patient continues to saturate 92-96% on room air. Patient did not require any supplemental oxygen and did a qualify for remdesivir or Decadron at this time. Continue with albuterol inhaler and Robitussin. The patient is on contact and droplet isolation. Patient is 98% on room air. Home O2 evaluation in a.m.. Plan for discharge today delayed due to recurrent episode of fever. Will monitor the patient overnight. Patient is clinically stable for discharge today. He will be monitored with pulse oximetry at home. He received a course of azithromycin. (2) Elevated blood sugar: Code(s): R73.9 - Hyperglycemia, unspecified Status: Acute Assessment and Plan: Accu-Chek in the 188-255 range. Continue Accu-Chek monitoring and sliding scale coverage. HGB A1c 9.6. Patient will be started on metformin upon discharge. (3) Hyponatremia: Code(s): E87.1 - Hypo-osmolality and hyponatremia Status: Acute Assessment and Plan: This appears to be his baseline between 127 and 130. He was only given 1 L of fluid since he has COVID. Check urine sodium and osmolality. Repeat serum sodium in a.m.. Subjective Date/time seen: 06/08/21 10:41 S: Patient was seen and examined at the bedside. He is sweating. He is reporting nausea. He seems comfortable breathing room air. Review of Systems Review of Systems: All systems reviewed & are unremarkable except as noted in HPI and below Constitutional: Constitutional: Reports as per HPI, Reports no additional constitutional complaints and Reports chills Eyes: Eyes: Reports as per HPI and Reports no additional eye complaints ENT: Reports system reviewed and no additional complaints, except as documented, Reports as per HPI and Reports Normal hearing present Cardiovascular: Cardiovascular: Reports as per HPI, Reports no additional cardiovascular complaints, Denies chest pain, Denies dyspnea and Denies dyspnea on exertion Respiratory: Respiratory: Reports no additional respiratory complaints, Reports no additional respiratory complaints, Denies dyspnea and Denies dyspnea on exertion Gastrointestinal: Gastrointestinal: Reports as per HPI, Reports no additional gastrointestinal complaints, Reports nausea and Denies vomiting Musculoskeletal: Musculoskeletal: Reports no additional musculoskeletal complaints Integumentary/Breasts: Skin/Breast: Reports system reviewed and no additional complaints, except as docu and Reports as per HPI Neurologic: Reports system reviewed and no additional complaints, except as documented, Reports as per HPI and Reports Normal hearing present Psychiatric: Psychiatric: Reports no additional psychiatric complaints and Reports as per HPI Endocrine: Endocrine: Reports no additional endocrine complaints Hematologic/Lymphatic: Hematologic/Lymphatic: Reports no additional hematologic/lymphatic complaints Allergic/Immunologic: Allergic/Immunologic: Reports no additional allergic/immunologic complaints Exam Const: General: cooperative, healthy appearing, comfortable, no acute distress, well developed, alert, awake and Physically active Nutritional Appearance: average body habitus and well nourished Orientation/consciousness: oriented to person, oriented to place, oriented to time and patient oriented x3 Limitations: no limitations HENMT: Head: normal to inspection, No palpable skull fracture present, normocephalic and atraumatic Ears: hearing grossly normal bilaterally General nose exam: Normal external nose present Eyes: General: appearance normal, both eyes and all related structures EOM: EOMs intact bilaterally Neck: Neck: normal visual inspection Chest: Chest palpation & inspection: normal inspection of the chest
[2021-06-08 11:50] LABS: Glucose Point of Care 180 mg/dl (65-105)
[2021-06-08 12:00] VITALS: BP 128/78; PULSE 100; RESP 20; TEMP 36.8; O2SAT 95
[2021-06-08 12:07] LABS: Influenza Control Positive
[2021-06-09 05:26] LABS: Osmolality, Urine 459 mOsm/kg (50-1200)
== END 2021-06-08 14:20 | disposition home or self-care (01) ==
LOC: ANHED 15:38 → ANH3MEDSUR 06-06 10:33
PROVIDERS: Nurse Practitioner; Admitting Provider Family Medicine; Emergency Provider Emergency Medicine; PCP Emergency Medicine; Visit Provider Internal Medicine
DX: U07.1 COVID-19 (principal); J12.82 Pneumonia due to coronavirus disease 2019; E87.1 Hypo-osmolality and hyponatremia; E11.9 Type 2 diabetes mellitus without complications
CPT/HCPCS: 36415; 71045; 71046; 71275; 80048; 80053; 82728; 82948; 83036; 83605; 83615; 83690; 83735; 83935; 84300; 84439; 84443; 84484; 85025; 85380; 87804; 93005; 94618; 94640; 96361; 96365; 96367; 96372; 96374; 99285; A9270; C8929; C9803; G0378; J0456; J0696; J1650; J1815; J2405; J7030; Q9957; Q9967; U0003; U0005

== ENCOUNTER → 2021-07-10 10:56 | Outpatient (CLI) | payer OTHER, SELFPAY ==
--- NOTE | ~2021-07-10 | XR_ITS ---
EXAMINATION: XR chest 2V DATE: 07/10/2021 11:15 INDICATION: Pneumonia. TECHNIQUE: Frontal and lateral views of the chest were obtained. COMPARISON: Chest 2 views 06/05/2021, chest single view 06/07/2021, chest CT 06/05/2021 FINDINGS: Lung volumes are small. There are patchy airspace opacities in all lung zones bilaterally. No pleural effusion or pneumothorax. The heart size is normal. IMPRESSION: 1. Diffuse lung disease with mild improvement from 06/07/2021, consistent with pneumonia. Reviewed, dictated and finalized at location A. 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 Diffuse lung disease with mild improvement from 06/07/2021, consistent with pn eumonia.
== END ==
PROVIDERS: PCP Emergency Medicine; Visit Provider Emergency Medicine
DX: J18.9 Pneumonia, unspecified organism (principal)
CPT/HCPCS: 71046

== ENCOUNTER → 2021-10-30 08:19 | Outpatient (CLI) | payer OTHER, SELFPAY ==
--- NOTE | ~2021-10-30 | XR_ITS ---
XR chest 2V 10/30/2021 08:38 Indication: Follow-up Covid pneumonia Procedure: 2 view chest Comparison: 07/10/2021 Findings: There has been significant improvement of patchy bilateral airspace disease, consistent wit h resolving pneumonia. Heart size normal. No pleural effusion, edema or pneumothorax. Impression: 1: Significant improvement of patchy bilateral airspace disease compared with prior study, compatible with resolving pneumonia. Reviewed, dictated and finalized at location A. Impression: 1: Significant improvement of patchy bilateral airspace disease compared with p rior study, compatible with resolving pneumonia.
== END ==
PROVIDERS: PCP Emergency Medicine; Visit Provider Emergency Medicine
DX: U07.1 COVID-19 (principal); J12.82 Pneumonia due to coronavirus disease 2019
CPT/HCPCS: 71046

== ENCOUNTER 2022-07-22 15:10 | Outpatient (CLI) | payer OTHER, SELFPAY ==
--- NOTE | ~2022-07-22 | CT_ITS ---
EXAMINATION: CT sinus wo con DATE: 07/22/2022 15:22 INDICATION: Chronic sinusitis. Chronic congestion. TECHNIQUE: Computed tomography (CT) of the paranasal sinuses was performed without contrast. Iterativ e reconstruction technique was employed. Exam dose: 280.01 mGy-cm total exam DLP. COMPARISON: None FINDINGS: There is minimal rightward bowing of the upper portion of the anterior nasal septum and min imal leftward bowing of the lower portion of the anterior nasal septum and mild rightward deviation o f the posterior nasal septum. The nasal turbinates are prominent but relatively symmetric in size. Minimal rand bullosa of the left middle nasal turbinate. The ostiomeatal units are patent. There is minimal focal mucoperiosteal thickening of the lower maxillary sinuses. The paranasal sinuses otherwise are normally developed and aerated. The mastoid air cells are well-developed and normally aerated. IMPRESSION: Minimal mucoperiosteal thickening of the lower portion of the maxillary sinuses; paranas al sinuses and mastoid air cells are otherwise normally developed and aerated Prominent soft tissue swelling of the nasal turbinates, minimal rand bullosa of left middle nasal t urbinate Mild nasal septum bowing/deviation Reviewed, dictated and finalized at Location [facility]. Reviewed, dictated and finalized at location B. IMPRESSION: Minimal mucoperiosteal thickening of the lower portion of the maxi llary sinuses; paranasal sinuses and mastoid air cells are otherwise normally d eveloped and aerated Prominent soft tissue swelling of the nasal turbinates, minimal rand bullosa of left middle nasal turbinate Mild nasal septum bowing/deviation
== END 2022-07-22 15:11 ==
LOC: MICIMG 15:10
PROVIDERS: PCP Emergency Medicine; Visit Provider Emergency Medicine
DX: J32.9 Chronic sinusitis, unspecified (principal); R93.0 Abnormal findings on diagnostic imaging of skull and head, not elsewhere classified
CPT/HCPCS: 70486

== ENCOUNTER 2024-02-02 16:14 | Outpatient (CLI) | payer OTHER, SELFPAY ==
--- NOTE | ~2024-02-02 | US_ITS ---
EXAMINATION: US soft tissue abdomen DATE: 02/02/2024 16:27 INDICATION: Ventral hernia TECHNIQUE: Multiple grayscale and Doppler ultrasound images of the abdomen were obtained. COMPARISON: CT dated 05/2410/22/2021 FINDINGS: There is shadowing at the margins of a small fat-containing umbilical hernia which measures approxima tely 1.5 cm maximal diameter which appears minimally changed from prior CT. Surrounding abdominal wal l appears intact with no other periumbilical ventral hernias identified. No other abnormal masses or fluid collections identified. IMPRESSION: 1. No significant change in a very small fat-containing umbilical hernia. No other ventral hernias id entified. Reviewed, dictated and finalized at location A. IMPRESSION: 1. No significant change in a very small fat-containing umbilical hernia. No ot her ventral hernias identified.
== END 2024-02-02 16:15 | disposition home or self-care (01) ==
PROVIDERS: PCP Emergency Medicine; Visit Provider Emergency Medicine
DX: K42.9 Umbilical hernia without obstruction or gangrene (principal)
CPT/HCPCS: 76705

== ENCOUNTER 2024-06-01 16:19 | Outpatient (CLI) | payer OTHER, SELFPAY ==
--- NOTE | ~2024-06-01 | US_ITS ---
EXAMINATION: US thyroid DATE: 06/01/2024 16:37 INDICATION: Hypothyroidism. TECHNIQUE: Multiple ultrasound images of the thyroid were obtained. COMPARISON: None. FINDINGS: The right thyroid lobe measures 4.8 x 1.2 x 1.4 cm. The left thyroid lobe measures 4.8 x 1.6 x 1.8 c m. In the left thyroid lobe, there is a 12 mm solid, hypoechoic, wider than tall nodule with smooth margin without echogenic foci (TI-RADS TR4). In the right thyroid lobe, there is a 10 mm solid, very hypoechoic, wider than tall nodule with smooth margin without echogenic foci (TR4). IMPRESSION: 1. Small thyroid nodules. Consider thyroid ultrasound in one year. 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
== END 2024-06-01 16:20 | disposition home or self-care (01) ==
PROVIDERS: PCP Emergency Medicine; Visit Provider Emergency Medicine
DX: E03.9 Hypothyroidism, unspecified (principal); E04.2 Nontoxic multinodular goiter
CPT/HCPCS: 76536